=== PATIENT | female | born 1995 | race Caucasian/White ===

== ENCOUNTER → 2024-04-22 12:59 | Outpatient (REF) | payer BC, SELFPAY | LOC: HWRAD 12:59 | PROVIDERS: ATTENDING PHYSICIAN Obstetrics & Gynecology; FAMILY PHYSICIAN Physician Assistant Medical | DX: N83.202 Unspecified ovarian cyst, left side (principal) | CPT/HCPCS: 76830; 76856 ==

== ENCOUNTER → 2024-08-01 15:11 | Outpatient (REF) | payer BC, SELFPAY | LOC: HWRAD 15:11 | PROVIDERS: ATTENDING PHYSICIAN Student in an Organized Health Care Education/Training Program | DX: J02.9 Acute pharyngitis, unspecified (principal); R05.9 Cough, unspecified | CPT/HCPCS: 71046 ==